=== PATIENT | male | born 1975 | race Caucasian/White ===

== ENCOUNTER 2025-07-02 21:01 | Emergency (ER) | payer BC, SELFPAY ==
[2025-07-02 21:02] VITALS: BP 136/94
[2025-07-02 22:15] VITALS: BP 128/75
[2025-07-02 22:40] LABS: Hematocrit 41.4 % (39.0-52.0); Hemoglobin 14.3 g/dL (13.0-18.0); Mean Corp Hgb Conc. 34.5 g/dL (33.0-37.0); Mean Corpuscular Volume 89.4 fL (80.0-94.0); Nucleated Red Blood Cells % 0 % (-); Platelet Count 247 10^3/uL (130-400); Red Cell Dist. Width 12.2 % (11.5-14.5)
[2025-07-02 23:00] LABS: ALT (SGPT) 21 U/L (0-50); AST (SGOT) 26 U/L (17-59); Albumin 4.8 g/dl (3.5-5.0); Alkaline Phosphatase 47 U/L (38-126); Blood Urea Nitrogen 15 mg/dl (9-20); Calcium 9.5 mg/dl (8.4-10.2); Carbon Dioxide 25 mmol/L (22-30); Chloride 105 mmol/L (98-107); Estimated Creatinine Clearance 72 ml/min; Glucose 100 mg/dl (70-99); Potassium 4.0 mmol/L (3.5-5.1); Sodium 137 mmol/L (135-145); Total Protein 7.5 g/dl (6.3-8.2); eGFR > 60.00
[2025-07-02 23:03] LABS: Troponin I 0.018 ng/ml
[2025-07-02 23:09] VITALS: BMI 21.9
[2025-07-02 23:30] VITALS: BP 132/75
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
== END 2025-07-03 00:23 | disposition home or self-care (01) ==
LOC: EMR 21:01
PROVIDERS: Emergency Medicine; EMERGENCY PHYSICIAN Student in an Organized Health Care Education/Training Program; FAMILY PHYSICIAN Family Medicine
DX: S29.9XXA Unspecified injury of thorax, initial encounter (principal); I49.3 Ventricular premature depolarization; V19.9XXA Pedal cyclist (driver) (passenger) injured in unspecified traffic accident, initial encounter; Y93.55 Activity, bike riding
CPT/HCPCS: 99284; 71101; 80053; 84484; 85025; 93005